=== PATIENT | male | born 1985 | race Caucasian/White ===

== ENCOUNTER 2022-07-15 12:21 | Emergency (ER) | payer OTHER, BC ==
[~2022-07-15] VITALS: Ht 177.8 cm; Wt 74.8 kg
[~2022-07-15 12:21] MED LIST: BEN50 PO; DIVA500T1 PO; LORA-476 PO; LORA10OD3 PO; QUET300T1 PO; [UNRECOGNIZED DRUG - CODE] PO
[2022-07-15 12:31] VITALS: BP 111/71
--- NOTE | 2022-07-15 12:36 | NUR ---
PATIENT RECEIVED FROM TRIAGE, ACCOMPANIED BY PCG FOR WOUND CHECK OF AN OLD DOGBITE.PAIENT AMBULATORY AND ABLE TO FOLLOW INSTRUCTIONS
[2022-07-15] MEDS ORDERED: BACITRACIN OINT 500 UNITS/GM PKT TP ONE (13:25)
[2022-07-15] MEDS ORDERED: BACI1PAC6 TP (13:32)
--- NOTE | 2022-07-15 13:36 | NUR ---
PT'S WOUND CLEANED WITH BETADINE AND WARM WATER AND DRESSED WITH NON-ADHERENT GUAZE PAD AND WRAPPED WITH 2" PRIMO WRAP. CMS WNL
[2022-07-15 14:39] VITALS: BP 125/67
--- NOTE | 2022-07-15 14:56 | NUR ---
PATIENT AMBULATED OUT OF ED WITH NO S/S OF ACUTE DISTRESS, ACCOMPANIED BY PCG
== END 2022-07-15 14:39 | disposition home or self-care (01) ==
LOC: MED 12:21
DX: S81.802D Unspecified open wound, left lower leg, subsequent encounter (principal); Z88.0 Allergy status to penicillin; Z79.899 Other long term (current) drug therapy; X58.XXXD Exposure to other specified factors, subsequent encounter
CPT/HCPCS: 99282

== ENCOUNTER 2022-08-10 20:47 | Emergency (ER) | payer OTHER, BC ==
[~2022-08-10] VITALS: Ht 182.9 cm; Wt 79.8 kg
[~2022-08-10 20:47] MED LIST changes: +BACI1PAC6 TP
[2022-08-10 21:28] VITALS: BP 109/63
[2022-08-10] MEDS ORDERED: LIDOCAINE/EPI MPF 1%1:200000 30 ML VIAL INJ ONE (23:25)
[2022-08-10] MEDS ORDERED: BACITRACIN OINT 500 UNITS/GM PKT TP ONE (23:50)
[2022-08-11 00:26] VITALS: BP 109/63
--- NOTE | 2022-08-11 00:26 | NUR ---
Patient discharged with v/s stable. Written and verbal after care instructions given and explained. Patient verbalized understanding. Wheel Chair Assisted with by caregiver. All questions addressed prior to discharge. Advised to follow up with PMD.
== END 2022-08-11 00:26 | disposition home or self-care (01) ==
LOC: MED 20:47
DX: S01.01XA Laceration without foreign body of scalp, initial encounter (principal); Z88.0 Allergy status to penicillin; Z88.1 Allergy status to other antibiotic agents; Z88.8 Allergy status to other drugs, medicaments and biological substances; Z79.899 Other long term (current) drug therapy; W18.30XA Fall on same level, unspecified, initial encounter; Y93.89 Activity, other specified; Y92.89 Other specified places as the place of occurrence of the external cause; Y99.8 Other external cause status
CPT/HCPCS: 12002; 70450; 90471; 93005; 99284; J2001

== ENCOUNTER 2022-10-25 16:48 | Emergency (ER) | payer OTHER, BC ==
[~2022-10-25] VITALS: Ht 182.9 cm; Wt 79.4 kg
[~2022-10-25 16:48] MED LIST changes: +BACI-416 TP; -BACI1PAC6 TP
[2022-10-25 16:50] VITALS: BP 124/74
[2022-10-25] MEDS ORDERED: LIDOCAINE MPF 1% 10 MG/ML VIAL INJ ONE (17:15)
--- NOTE | 2022-10-25 17:30 | NUR ---
PT BROUGHT BACK FROM CT VIA [facility].
--- NOTE | 2022-10-25 17:35 | NUR ---
37M BIB CAREGIVER WITH C/O LACERATION TO BACK OF HEAD S/P UNWITNESSED GROUND LEVEL FALL TODAY. PT SUSTAINED A HEMATOMA AND 4CM LACERATION TO THE OCCIPITAL SCALP. CAREGIVER REPORTS PT C/O DIZZINESS AND HAD URINARY INCONTINENCE S/P FALL. UPON ASSESSMENT, BLEEDING IS CONTROLLED, PT ACTING APPROPRIATELY PER CAREGIVER.
--- NOTE | 2022-10-25 17:55 | NUR ---
DR ARREDONDO AT BEDSIDE FOR LACERATION CARE.
--- NOTE | 2022-10-25 19:08 | NUR ---
Patient discharged with v/s stable. Written and verbal after care instructions ABOUT DANDRE, SUTURE OR ADHESIVE WOUND CLOSURE given and explained. Patient verbalized understanding. Ambulatory with steady gait. All questions addressed prior to discharge. Advised to follow up with PMD.
== END 2022-10-25 19:07 | disposition home or self-care (01) ==
LOC: MED 16:48
DX: S01.01XA Laceration without foreign body of scalp, initial encounter (principal); E07.9 Disorder of thyroid, unspecified; R42 Dizziness and giddiness; R32 Unspecified urinary incontinence; Z88.0 Allergy status to penicillin; Z88.1 Allergy status to other antibiotic agents; Z88.8 Allergy status to other drugs, medicaments and biological substances; Z79.899 Other long term (current) drug therapy; Z95.0 Presence of cardiac pacemaker; W19.XXXA Unspecified fall, initial encounter; Y93.89 Activity, other specified; Y92.89 Other specified places as the place of occurrence of the external cause; Y99.8 Other external cause status
CPT/HCPCS: 70450; 72125; 99284; J2001

== ENCOUNTER 2023-02-17 10:43 | Emergency (ER) | payer OTHER, BC ==
[~2023-02-17] VITALS: Ht 175.3 cm; Wt 88.0 kg
[2023-02-17 10:56] VITALS: BP 107/68
--- NOTE | 2023-02-17 11:21 | NUR ---
PATIENTS CARETAKEN STATED THAT PATIENT IS MENTALY DISABLED AND UNSTEADY ON HIS FEET. HE FELL IN THE KITCHEN, HIT HIS NOSE ON FLOOR AND STARTED BLEEDING. 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
--- NOTE | 2023-02-17 11:39 | NUR ---
Note shainaone in [facility] - 02/17/23 at 1144 by [email or web address] RADIOLOGY TRANSPORTED FOR XRAY IN WHEELCHAIR Addendum: 02/17/23 at 1144 by [email or web address] Amendment vivi in [facility] - 02/17/23 at 1144 by [email or web address] XRAY AT BEDSIDE
--- NOTE | 2023-02-17 11:40 | NUR ---
X-Ray at bedside.
[2023-02-17 12:17] VITALS: BP 105/66
--- NOTE | 2023-02-17 12:17 | NUR ---
Patient discharged with v/s stable. Written and verbal after care instructions given and explained. Patient verbalized understanding. Wheel Chair Assisted with to car. All questions addressed prior to discharge. Advised to follow up with PMD.
== END 2023-02-17 12:17 | disposition home or self-care (01) ==
LOC: MED 10:43
DX: S02.2XXA Fracture of nasal bones, initial encounter for closed fracture (principal); F41.9 Anxiety disorder, unspecified; G47.00 Insomnia, unspecified; Z95.0 Presence of cardiac pacemaker; Z86.39 Personal history of other endocrine, nutritional and metabolic disease; Z79.899 Other long term (current) drug therapy; Z79.2 Long term (current) use of antibiotics; Z88.8 Allergy status to other drugs, medicaments and biological substances; Z88.1 Allergy status to other antibiotic agents; Z88.0 Allergy status to penicillin; W01.198A Fall on same level from slipping, tripping and stumbling with subsequent striking against other object, initial encounter; Y92.89 Other specified places as the place of occurrence of the external cause; Y93.89 Activity, other specified; Y99.8 Other external cause status
CPT/HCPCS: 70160; 99283; Q0092

== ENCOUNTER 2023-02-19 17:22 | Emergency (ER) | payer OTHER, BC ==
[~2023-02-19] VITALS: Ht 195.6 cm; Wt 90.3 kg
[2023-02-19 19:23] LABS: BASOPHILS % (AUTO) 0.2 % (0.0-2.0); EOSINOPHILS % (AUTO) 0.4 % (0.0-4.0); HEMATOCRIT 44.3 % (36-52); HEMOGLOBIN 14.7 g/dL (12.0-18.0); LYMPHOCYTES # (AUTO) 1.8 K/uL (2.0-11.5); LYMPHOCYTES % (AUTO) 34.7 % (20.5-51.1); MEAN CORPUSCULAR HEMOGLOBIN 30 pg (27-31); MEAN CORPUSCULAR HGB CONC 33 g/dL (33-37); MEAN CORPUSCULAR VOLUME 90.6 fL (80-94); MONOCYTES # (AUTO) 0.5 K/uL (0.8-1.0); MONOCYTES % (AUTO) 10.1 % (1.7-9.3); NEUTROPHILS # (AUTO) 2.8 K/uL (1.8-7.7); NEUTROPHILS % (AUTO) 54.6 % (42.2-75.2); PLATELET COUNT (AUTO) 132 K/uL (140-450); RED BLOOD CELL COUNT(AUTO) 4.89 MIL/uL (4.20-6.10); RED CELL DISTRIBUTION WIDTH 14.8 % (11.6-13.7); WHITE BLOOD COUNT (AUTO) 5.2 K/uL (4.8-10.8)
[2023-02-19 19:33] LABS: ALBUMIN 3.9 g/dL (3.4-5.0); ANION GAP 10.4 (8-16); ASPARTATE AMINOTRANSFERASE 18 U/L (15-37); CARBON DIOXIDE 34.2 mmol/L (21-32); CHLORIDE 104 mmol/L (98-107); CREATININE 1.1 mg/dL (0.6-1.3); GFR ARICAN-AMERICAN 96 mL/min (>90); GLUCOSE 96 mg/dL (74-106); POTASSIUM 3.6 mmol/L (3.5-5.1); SODIUM SERUM 145 mmol/L (136-145); TOTAL BILIRUBIN 0.3 mg/dL (0.0-1.0); UREA NITROGEN, BLOOD 25 mg/dL (7-18)
[2023-02-19] MEDS ORDERED: ACET-10509 PO (20:15)
--- NOTE | 2023-02-19 20:25 | NUR ---
Patient discharged with v/s stable. Written and verbal after care instructions given and explained. Patient verbalized understanding. Ambulatory with steady gait. All questions addressed prior to discharge. Advised to follow up with PMD.
== END 2023-02-19 20:25 | disposition home or self-care (01) ==
LOC: MED 17:22
DX: S06.0X0A Concussion without loss of consciousness, initial encounter (principal); R62.50 Unspecified lack of expected normal physiological development in childhood; E03.9 Hypothyroidism, unspecified; W18.39XA Other fall on same level, initial encounter; Y92.89 Other specified places as the place of occurrence of the external cause; Y93.89 Activity, other specified; Y99.8 Other external cause status
CPT/HCPCS: 36415; 70450; 80053; 84484; 85025; 93005; 99284

== ENCOUNTER 2023-05-10 19:54 | Emergency (ER) | payer BC, OTHER ==
[~2023-05-10] VITALS: Ht 182.9 cm; Wt 86.2 kg
[~2023-05-10 19:54] MED LIST changes: +ACET-10509 PO; -BACI-416 TP; +BACI-418 TP
[2023-05-10 20:30] VITALS: BP 126/72; PULSE 65; RESP 20; TEMP 98; O2SAT 98
[2023-05-10] MEDS ORDERED: IBUP-2213 PO (22:21)
[2023-05-10 22:49] VITALS: BP 126/72; PULSE 65; RESP 20; TEMP 98; O2SAT 98
== END 2023-05-10 22:52 | disposition home or self-care (01) ==
LOC: MED 19:54
DX: S93.492A Sprain of other ligament of left ankle, initial encounter (principal); Z88.0 Allergy status to penicillin; Z88.8 Allergy status to other drugs, medicaments and biological substances; Z79.899 Other long term (current) drug therapy; W01.0XXA Fall on same level from slipping, tripping and stumbling without subsequent striking against object, initial encounter; Y93.89 Activity, other specified; Y92.89 Other specified places as the place of occurrence of the external cause; Y99.8 Other external cause status
CPT/HCPCS: 73610; 99283